=== PATIENT | female | born 1950 | race African-American/Black ===

== ENCOUNTER 2025-02-02 13:25 | Emergency (ER) | payer MEDICARE, MEDICAID ==
[~2025-02-02] VITALS: Ht 165.1 cm; Wt 59.0 kg
[2025-02-02 13:38] VITALS: TEMP 37; O2SAT 99
[2025-02-02] MEDS: HYDROCODONE/ACETAMINOPHEN 5/325MG TABLET PO ONE (15:58)
[2025-02-02] MEDS: BACITRACIN ZINC OINT UDPKT TOP ONE (15:59)
[2025-02-02] MEDS: LIDOCAINE 5% PATCH TOP SCH (15:59)
[2025-02-02] MEDS ORDERED: BO1 TP (16:02)
[2025-02-02] MEDS ORDERED: ACET-2708 MT (16:02)
[2025-02-02] MEDS ORDERED: CYCL10TA21 MT (16:02)
[2025-02-02] MEDS ORDERED: LIDO-53 TP (16:02)
[2025-02-02 16:31] VITALS: BP 146/75; PULSE 77; RESP 16; O2SAT 98
== END 2025-02-02 16:32 | disposition home or self-care (01) ==
LOC: ER 13:25
DX: S40.212A Abrasion of left shoulder, initial encounter (principal); I10 Essential (primary) hypertension; X58.XXXA Exposure to other specified factors, initial encounter; Y93.89 Activity, other specified; Y92.89 Other specified places as the place of occurrence of the external cause; Y99.8 Other external cause status
CPT/HCPCS: 73030; 99284; A4565